=== PATIENT | female | born 1970 | race Two or more races ===

== ENCOUNTER 2024-08-14 10:08 | Emergency (ER) | payer OTHER ==
[~2024-08-14] VITALS: Ht 162.6 cm; Wt 69.9 kg
[~2024-08-14 10:08] MED LIST: LITHATE5 MG PO; PRAMIPEXOLE E2.25 MG PO
[2024-08-14] MEDS ORDERED: FAMOtidine 10 MG/ML (4ML VIAL) IV ONE (10:45)
[2024-08-14] MEDS ORDERED: 0.9 % SODIUM CHLORIDE 1,000 ML IV ONE (10:45)
[2024-08-14] MEDS ORDERED: KETOROLAC TROMETHAMINE 60 MG VIAL IM ONE (10:45)
[2024-08-14] MEDS ORDERED: PROMETHAZINE HCL 50 MG/ML AMPUL IV ONE (10:45)
[2024-08-14] MEDS ORDERED: LOPERAMIDE HCL 4 MG/30 ML LIQUID PO ONE (11:45)
[2024-08-14 12:58] LABS: HEMATOCRIT 39.8 % (36.0-45.00); HEMOGLOBIN 13.6 g/dL (12.0-15.00); MEAN CORPUSCULAR HEMOGLOBIN 33.1 pg (27.00-32.0); MEAN CORPUSCULAR HGB CONC 34.1 g/dl (32.0-36.0); PLATELET COUNT 306 K/uL (150-450); RED CELL DISTRIBUTION WIDTH 13.6 % (11.5-14.5)
[2024-08-14 13:27] LABS: ALBUMIN 4.2 gm/dL (3.4-5.0); BILIRUBIN TOTAL 0.53 mg/dL (0.3-1.2); CALCIUM 9.7 mg/dL (8.5-10.1); CREATININE SERUM 0.68 mg/dL (0.55-1.02); GFR 90.17; GLOBULINA 3.7 G/DL (2.4-3.5); POTASSIUM 4.28 mEq/L (3.5-5.1); TOTAL PROTEIN 7.9 gm/dL (6.4-8.2)
[2024-08-14] MEDS ORDERED: PROMETHAZINE HCL 50 MG/ML AMPUL IM STA (15:28)
[2024-08-14] MEDS ORDERED: METOCLOPRAMIDE HCL 10 MG in DEXTROSE 5 % IN WATER 50 ML IV ONE (19:45)
== END 2024-08-14 22:38 | disposition home or self-care (01) ==
LOC: ER 10:08
PROVIDERS: General Practice
DX: K31.84 Gastroparesis (principal); Z88.8 Allergy status to other drugs, medicaments and biological substances